=== PATIENT | female | born 2000 | race American Indian/Alaskan Native ===

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

== ENCOUNTER 2022-04-29 10:53 | Emergency (ER) | payer MEDICAID ==
[2022-04-29 11:35] VITALS: BP 111/48
== END 2022-04-29 16:19 | disposition left against medical advice (07) ==
LOC: ED 10:53
DX: M25.511 Pain in right shoulder (principal); M54.9 Dorsalgia, unspecified; Z53.21 Procedure and treatment not carried out due to patient leaving prior to being seen by health care provider; V87.7XXA Person injured in collision between other specified motor vehicles (traffic), initial encounter; Y93.89 Activity, other specified; Y92.488 Other paved roadways as the place of occurrence of the external cause; Y99.8 Other external cause status